=== PATIENT | female | born 1970 | race Caucasian/White ===

== ENCOUNTER 2022-12-04 17:02 | Emergency (ER) | payer OTHER ==
[~2022-12-04] VITALS: Ht 152.4 cm; Wt 68.0 kg
[2022-12-04] MEDS ORDERED: IBUPROFEN 600 MG TABLET ONE (19:13)
--- NOTE | 2022-12-04 19:15 | NUR ---
pt taken to ct
--- NOTE | 2022-12-04 19:17 | NUR ---
MOTRIN PO GIVEN INDICATED, BELEN WELL
[2022-12-04] MEDS ORDERED: IBUPROFEN 600 MG TABLET PO ONE (19:30)
[2022-12-04] MEDS ORDERED: IBUP-1953 PO (21:42)
[2022-12-04 22:00] VITALS: BP 132/70
--- NOTE | 2022-12-04 22:33 | NUR ---
Patient discharged to home in stable condition. Written and verbal after care instructions given. Patient verbalizes understanding of instruction.
== END 2022-12-04 22:34 | disposition home or self-care (01) ==
LOC: ER 17:04
DX: S00.11XA Contusion of right eyelid and periocular area, initial encounter (principal); S20.212A Contusion of left front wall of thorax, initial encounter; Z79.1 Long term (current) use of non-steroidal anti-inflammatories (NSAID); Y08.89XA Assault by other specified means, initial encounter; Y93.89 Activity, other specified; Y92.89 Other specified places as the place of occurrence of the external cause; Y99.8 Other external cause status
CPT/HCPCS: 70486-TC; 71100-TC

== ENCOUNTER 2024-05-10 07:48 | Emergency (ER) | payer OTHER ==
[~2024-05-10] VITALS: Ht 152.4 cm; Wt 86.6 kg
[~2024-05-10 07:48] MED LIST: IBUP-1953 PO
[2024-05-10 07:53] VITALS: TEMP 98
[2024-05-10] MEDS ORDERED: ONDANSETRON HCL/PF 4 MG/2 ML VIAL ONE (08:12)
[2024-05-10 08:27] LABS: BASOPHILS % (AUTO) 0.5 % (0.0-2.0); EOSINOPHILS # (AUTO) 0.2 K/uL (0.0-0.7); EOSINOPHILS % (AUTO) 3.6 % (0.0-6.0); HEMATOCRIT 39 % (33-45); HEMOGLOBIN 12.7 g/dL (11.5-14.8); LYMPHOCYTES # (AUTO) 1.9 K/uL (0.8-4.8); LYMPHOCYTES % (AUTO) 29.4 % (20.0-44.0); MEAN CORPUSCULAR HEMOGLOBIN 30 PG (26.0-33.0); MEAN CORPUSCULAR HGB CONC 33 g/dl (31.0-36.0); MEAN CORPUSCULAR VOLUME 92 fL (82-100); MONOCYTES # (AUTO) 0.4 K/uL (0.1-1.30); MONOCYTES % (AUTO) 6.4 % (2.0-12.0); NEUTROPHILS # (AUTO) 3.9 K/uL (1.8-8.9); NEUTROPHILS % (AUTO) 60.1 % (43.0-81.0); PLATELET COUNT (AUTO) 330 K/uL (150-450); RED BLOOD CELL COUNT(AUTO) 4.19 MIL/uL (4.0-5.2); RED CELL DISTRIBUTION WIDTH 13.9 % (11.5-15.0); WHITE BLOOD COUNT (AUTO) 6.5 K/uL (4.3-11.0)
[2024-05-10 08:36] LABS: CREATININE 0.8 mg/dL (0.6-1.3); POTASSIUM 4.2 mmol/L (3.5-5.1)
[2024-05-10 08:41] LABS: ALBUMIN 3.2 g/dL (3.4-5.0); BILIRUBIN,DIRECT 0.1 mg/dL (0.0-0.2); BILIRUBIN,TOTAL 0.3 mg/dL (0.2-1.0); TOTAL PROTEIN, SERUM 7.5 g/dL (6.4-8.2)
[2024-05-10 08:43] LABS: PREGNANCY TEST URINE QUAL NEGATIVE (NEGATIVE)
[2024-05-10 08:44] LABS: APPEARANCE,URINE CLEAR (CLEAR); BILIRUBIN,URINE NEGATIVE (NEGATIVE); BLOOD, URINE 2+ Ery/uL (NEGATIVE); COLOR,URINE YELLOW (YELLOW); KETONES,URINE NEGATIVE (NEGATIVE); LEUKOCYTE ESTERASE ,URINE TRACE (NEGATIVE); NITRITE, URINE NEGATIVE (NEGATIVE); PROTEIN,URINE NEGATIVE (NEGATIVE); UGLUCOSE NEGATIVE (NEGATIVE); UROBILINOGEN,URINE 0.2 EU/dL (0.2)
[2024-05-10] MEDS: ONDANSETRON HCL/PF 4 MG/2 ML VIAL IVP ONE (08:45)
[2024-05-10] MEDS: IV NS 0.9% 1,000 ML BAG IV ONE (08:45)
[2024-05-10 08:46] LABS: ADD URINE CULTURE YES; BACTERIA,URINE Rare /HPF (None Seen); SQUAMOUS EPITHELIAL CELL,UR Few /HPF (None Seen)
[2024-05-10] MEDS ORDERED: ONDA4TAB5 PO (09:33)
[2024-05-10] MEDS ORDERED: IBUP-1955 PO (09:33)
[2024-05-10] MEDS ORDERED: CEFD300C3 PO (09:33)
[2024-05-10] MEDS ORDERED: CEFTRIAXONE 1GM BAG (ER ONLY) 50 ML IV ONE (09:57)
[2024-05-10] MEDS: CEFTRIAXONE 1 G in IV D5W 50 ML IV ONE (09:58)
[2024-05-10 10:40] VITALS: BP 124/68; O2SAT 96
== END 2024-05-10 10:41 | disposition home or self-care (01) ==
LOC: ER 07:50
DX: N39.0 Urinary tract infection, site not specified (principal); R10.84 Generalized abdominal pain; R10.2 Pelvic and perineal pain; R11.2 Nausea with vomiting, unspecified; R53.83 Other fatigue; Z79.899 Other long term (current) drug therapy
CPT/HCPCS: 99285; 96365; 71045; 96361; 96375; 93005; 85025; 80048; 87086; 83690; 80076; 84703; 81001; 36415; J2405; J7030; J0696